=== PATIENT | male | born 1985 | race Caucasian/White ===

== ENCOUNTER 2020-02-23 01:39 | Emergency (ER) | payer MEDICAID, OTHER ==
--- NOTE | 2020-02-23 01:59 | ERPHSYRPT ---
- History of Present Illness Time Seen by Provider: 02/23/20 01:50 Source: patient, police Exam Limitations: other (suspected substance abuse) Patient Subjective Stated Complaint: Under arrest. Physician History: Brought in by police for clearance for fdc. He is suspected of substance abuse. Timing/Duration: today Severity: moderate Modifying Factors: Improves With: other Associated Symptoms: denies symptoms Allergies/Adverse Reactions: No Known Drug Allergies Allergy (Verified 02/23/20 01:56) Home Medications: No Reportable Medications [No Reported Medications] 02/23/20 [History] Hx Tetanus, Diphtheria Vaccination/Date Given: Yes Hx Influenza Vaccination/Date Given: No Hx Pneumococcal Vaccination/Date Given: No - Review of Systems Constitutional: No Symptoms Eyes: No Symptoms Ears, Nose, & Throat: No Symptoms Respiratory: No Symptoms Cardiac: No Symptoms Abdominal/Gastrointestinal: No Symptoms Genitourinary Symptoms: No Symptoms Musculoskeletal: No Symptoms Skin: No Symptoms Neurological: No Symptoms Psychological: Drug Abuse Endocrine: No Symptoms Hematologic/Lymphatic: No Symptoms Immunological/Allergic: No Symptoms All Other Systems: Reviewed and Negative - Past Medical History Pertinent Past Medical History: Yes Neurological History: No Pertinent History ENT History: No Pertinent History Cardiac History: Other (see history of present illness) Respiratory History: No Pertinent History Endocrine Medical History: No Pertinent History Musculoskeletal History: No Pertinent History GI Medical History: No Pertinent History History: No Pertinent History Psycho-Social History: Depression Male Reproductive Disorders: No Pertinent History Other Medical History: MITRAL VALVE PROLAPSE - Past Surgical History Past Surgical History: No Neuro Surgical History: No Pertinent History Cardiac: No Pertinent History Respiratory: No Pertinent History Gastrointestinal: No Pertinent History Genitourinary: No Pertinent History Musculoskeletal: Other Male Surgical History: No Pertinent History Other Surgical History: Pt fell as a child, laceration and skull repair - Social History Smoking Status: Current every day smoker How long have you smoked: 10 Exposure to second hand smoke: No Drug Use: marijuana Patient Lives Alone: No Significant Family History: heart disease (sister mitral valve dx,and family members with sudden ) - Nursing Vital Signs Nursing Vital Signs: Initial Vital Signs Temperature 97.6 F 02/23/20 01:40 Pulse Rate 65 02/23/20 01:40 Respiratory Rate 18 02/23/20 01:40 Blood Pressure 157/89 02/23/20 01:40 O2 Sat by Pulse Oximetry 100 02/23/20 01:40 Pain Scale Pain Intensity 0 - Physical Exam General Appearance: no apparent distress Eye Exam: PERRL/EOMI, eyes nml inspection Ears, Nose, Throat Exam: normal ENT inspection Neck Exam: normal inspection, non-tender Respiratory Exam: normal breath sounds Cardiovascular Exam: regular rate/rhythm, normal heart sounds Gastrointestinal/Abdomen Exam: soft, normal bowel sounds Rectal Exam: deferred Back Exam: normal inspection Extremity Exam: normal inspection Neurologic Exam: alert, cooperative, other (somewhat "twitchy" from meth, not hallucinating) Skin Exam: normal color, warm, dry SpO2 Interpretation: normal O2 Delivery: Room Air - Course Nursing assessment & vital signs reviewed: Yes Ordered Tests: Active Orders 24 hr Category Date Time Status ACETAMINOPHEN Stat Lab 02/23/20 02:05 Completed CBC Stat Lab 02/23/20 02:05 Completed CMP Stat Lab 02/23/20 02:05 Completed ETHYL ALCOHOL Stat Lab 02/23/20 02:05 Completed SALICYLATE Stat Lab 02/23/20 02:05 Completed Urine Triage Profile Stat Lab 02/23/20 02:05 Completed Positive UDS noted. Lab/Rad Data: Laboratory Result Diagrams 02/23/20 02:05 02/23/20 02:05 Laboratory Results 02/23/20 02/23/20 02/23/20 Range/Units 02:05 02:05 02:05 WBC 9.1 (4.0-10.5) K/mm3 RBC 4.58 (4.1-5.6) M/mm3 Hgb 14.0 (12.5-18.0) gm/dl Hct 41.2 L (42-50) % MCV 90.0 (78-100) fl MCH 30.6 (26-32) pg MCHC 34.0 (32-36) g/dl RDW 13.7 (11.5-14.0) % Plt Count 275 (150-450) K/mm3 MPV 10.0 (7.5-11.0) fl Sodium 136 L (137-145) mmol/L Potassium 3.9 (3.5-5.1) mmol/L Chloride 99 (98-107) mmol/L Carbon Dioxide 29 (22-30) mmol/L Anion Gap 11.7 (5-15) MEQ/L BUN 17 (9-20) mg/dL Creatinine 0.91 (0.66-1.25) mg/dL Estimated GFR > 60.0 ML/MIN Glucose 114 H (74-106) mg/dL Calcium 10.0 (8.4-10.2) mg/dL Total Bilirubin 1.00 (0.2-1.3) mg/dL AST 26 (17-59) U/L ALT 18 (0-50) U/L Alkaline Phosphatase 80 (38-126) U/L Serum Total Protein 8.5 H (6.3-8.2) g/dL Albumin 5.2 H (3.5-5.0) g/dL Salicylates < 1.0 L (2-20) mg/dL Urine Opiates Level (NEGATIVE) Ur Methadone (NEGATIVE) Acetaminophen < 10 L (10-30) ug/ml Urine Barbiturates (NEGATIVE) Ur Phencyclidine (PCP) (NEGATIVE) Urine Amphetamine (NEGATIVE) U Benzodiazepine Level (NEGATIVE) Urine Cocaine (NEGATIVE) Urine Marijuana (THC) (NEGATIVE) Ethyl Alcohol (0-10) mg/dL 02/23/20 02/23/20 Range/Units 02:05 02:05 WBC (4.0-10.5) K/mm3 RBC (4.1-5.6) M/mm3 Hgb (12.5-18.0) gm/dl Hct (42-50) % MCV (78-100) fl MCH (26-32) pg MCHC (32-36) g/dl RDW (11.5-14.0) % Plt Count (150-450) K/mm3 MPV (7.5-11.0) fl Sodium (137-145) mmol/L Potassium (3.5-5.1) mmol/L Chloride (98-107) mmol/L Carbon Dioxide (22-30) mmol/L Anion Gap (5-15) MEQ/L BUN (9-20) mg/dL Creatinine (0.66-1.25) mg/dL Estimated GFR ML/MIN Glucose (74-106) mg/dL Calcium (8.4-10.2) mg/dL Total Bilirubin (0.2-1.3) mg/dL AST (17-59) U/L ALT (0-50) U/L Alkaline Phosphatase (38-126) U/L Serum Total Protein (6.3-8.2) g/dL Albumin (3.5-5.0) g/dL Salicylates (2-20) mg/dL Urine Opiates Level NEGATIVE (NEGATIVE) Ur Methadone NEGATIVE (NEGATIVE) Acetaminophen (10-30) ug/ml Urine Barbiturates NEGATIVE (NEGATIVE) Ur Phencyclidine (PCP) NEGATIVE (NEGATIVE) Urine Amphetamine POSITIVE (NEGATIVE) U Benzodiazepine Level POSITIVE (NEGATIVE) Urine Cocaine NEGATIVE (NEGATIVE) Urine Marijuana (THC) POSITIVE (NEGATIVE) Ethyl Alcohol < 10 (0-10) mg/dL - Progress Progress: unchanged Progress Note: 02/23/20 03:25 He is showing signs of meth use. Medically cleared for incarceration. Counseled pt/family regarding: drug and/or alcohol abuse, lab results - Departure Departure Disposition: Long-Term/Senior Living Clinical Impression: Substance abuse Condition: Stable Critical Care Time: No Referrals: THAO BAEZA [Primary Care Provider] - Instructions: Polysubstance Abuse Additional Instructions: Medically cleared for incarceration.
[2020-02-23 02:25] LABS: ALBUMIN 5.2 g/dL (3.5-5.0); ALKALINE PHOSPHATASE 80 U/L (38-126); ANION GAP 11.7 MEQ/L (5-15); BLOOD UREA NITROGEN 17 mg/dL (9-20); CHLORIDE 99 mmol/L (98-107); Carbon Dioxide 29 mmol/L (22-30); Creatinine 1 0.91 mg/dL (0.66-1.25); EST GLOMERULAR FILTRATION RATE > 60.0 ML/MIN; Glucose 114 mg/dL (74-106); Potassium 3.9 mmol/L (3.5-5.1); SGOT/AST 26 U/L (17-59); SGPT/ALT 18 U/L (0-50); SODIUM 136 mmol/L (137-145); Total Protein 8.5 g/dL (6.3-8.2)
[2020-02-23 02:26] LABS: ACETAMINOPHEN < 10 ug/ml (10-30); SALICYLATE < 1.0 mg/dL (2-20)
[2020-02-23 02:30] LABS: Barbiturate,Urine NEGATIVE (NEGATIVE); Benzodiazepine,Urine POSITIVE (NEGATIVE); Cocaine,Urine NEGATIVE (NEGATIVE); Methadone,Urine NEGATIVE (NEGATIVE); Opiate,Urine NEGATIVE (NEGATIVE); PCP,Urine NEGATIVE (NEGATIVE); THC,Urine POSITIVE (NEGATIVE)
[2020-02-23 02:38] LABS: Hematocrit 41.2 % (42-50); Mean Corpuscular Hemoglobin 30.6 pg (26-32); Platelet Count 275 K/mm3 (150-450); Red Blood Count 4.58 M/mm3 (4.1-5.6); Red Cell Distribution Width 13.7 % (11.5-14.0); White Blood Count 9.1 K/mm3 (4.0-10.5)
[2020-02-23 02:56] LABS: Amphetamine,Urine POSITIVE (NEGATIVE)
[2020-02-23 03:16] VITALS: BP 162/92; PULSE 72; O2SAT 96
== END 2020-02-23 03:25 | disposition home or self-care (01) ==
LOC: ED 01:39
DX: F19.10 Other psychoactive substance abuse, uncomplicated (principal); Z02.89 Encounter for other administrative examinations
CPT/HCPCS: 36415; 80053; 80307; 85027; 99283; G0480

== ENCOUNTER 2022-10-02 03:03 | Emergency (ER) | payer MEDICAID, OTHER ==
[2022-10-02 03:28] VITALS: RESP 20
--- NOTE | 2022-10-02 03:41 | ERPHSYRPT ---
- History of Present Illness Time Seen by Provider: 10/02/22 03:35 Source: patient Exam Limitations: no limitations Patient Subjective Stated Complaint: withdrawing from suboxone. last dose approx 2 weeks ago Triage Nursing Assessment: pt to ED c/o withdraw from suboxone. started on suboxone earlier this year and missed an appt recently so has been off the medication for approx 1.5-2 weeks. pt states he has aching joints and sore body that tylenol or ibuprofen are not alleviating. rates 4/10. states he has not been able to sleep or eat for a few days and is progressively feeling worse. reports increase in emesis today. Physician History: pt went off subaxone about 1 week ago and is continuing with withdrawal symptoms No CP or SOBreath or Abd pain. slightly aggitated, but otherwise normal mental status and normal neuro exam. Has rhinorrhea and hx diarrhea N and V. characteristic of withdrawal. We are not set up yet for the suboxone Tx here yet. chest is clear, Ht is reg without M. Abd soft nontender without peritoneal signs or mass or distension. Discussed lab eval with pt including risks/benefits of CBC, CMP, Lipase, Lactate , CPK and he wishes to proceed and these are ordered and the results discussed with pt when returned. Also discussed risks/benfits of zofran and clonidine with pt and he wishes to try these for symptomatic relief as well. and wishes IVF. Timing/Duration: day(s) Severity: moderate Modifying Factors: Improves With: nothing Associated Symptoms: nausea, vomiting Allergies/Adverse Reactions: No Known Drug Allergies Allergy (Verified 10/02/22 03:14) Home Medications: No Reportable Medications [No Reported Medications] 02/23/20 [History] Hx Tetanus, Diphtheria Vaccination/Date Given: Yes Hx Influenza Vaccination/Date Given: Yes Hx Pneumococcal Vaccination/Date Given: No Immunizations Up to Date: Yes Travel Risk - International Travel Have you traveled outside of the country in past 3 weeks: No - Coronavirus Screening Are you exhibiting any of the following symptoms?: No Symptoms: Shortness of Breath - Vaccine Status Have you recieved a Covid-19 vaccination: No - Review of Systems Constitutional: No Fever, No Chills Eyes: No Symptoms Ears, Nose, & Throat: No Symptoms Respiratory: No Cough, No Dyspnea Cardiac: No Chest Pain, No Edema, No Syncope Abdominal/Gastrointestinal: Nausea, Vomiting, Diarrhea, No Abdominal Pain Genitourinary Symptoms: No Dysuria Musculoskeletal: No Back Pain, No Neck Pain Skin: No Symptoms, No Rash Neurological: No Dizziness, No Focal Weakness, No Sensory Changes Psychological: No Symptoms Endocrine: No Symptoms Hematologic/Lymphatic: No Symptoms Immunological/Allergic: No Symptoms All Other Systems: Reviewed and Negative - Past Medical History Pertinent Past Medical History: Yes Neurological History: No Pertinent History ENT History: No Pertinent History Cardiac History: Other Respiratory History: No Pertinent History Endocrine Medical History: No Pertinent History Musculoskeletal History: No Pertinent History GI Medical History: GERD History: No Pertinent History Psycho-Social History: Depression Male Reproductive Disorders: No Pertinent History Other Medical History: MITRAL VALVE PROLAPSE - Past Surgical History Past Surgical History: No Neuro Surgical History: No Pertinent History Cardiac: No Pertinent History Respiratory: No Pertinent History Gastrointestinal: No Pertinent History Genitourinary: No Pertinent History Musculoskeletal: Other Male Surgical History: No Pertinent History Other Surgical History: Pt fell as a child, laceration and skull repair - Social History Smoking Status: Current every day smoker How long have you smoked: 10 Exposure to second hand smoke: No Drug Use: marijuana Patient Lives Alone: No Significant Family History: heart disease (sister mitral valve dx,and family members with sudden ) - Nursing Vital Signs Nursing Vital Signs: Initial Vital Signs Pulse Rate 75 10/02/22 03:14 Respiratory Rate 20 10/02/22 03:14 Blood Pressure 153/99 10/02/22 03:14 O2 Sat by Pulse Oximetry 95 10/02/22 03:14 Pain Scale Pain Intensity 4 - Physical Exam General Appearance: mild distress, alert Eye Exam: PERRL/EOMI, eyes nml inspection Ears, Nose, Throat Exam: normal ENT inspection, TMs normal, pharynx normal, moist mucous membranes Neck Exam: normal inspection, non-tender, supple, full range of motion Respiratory Exam: normal breath sounds, lungs clear, No respiratory distress Cardiovascular Exam: regular rate/rhythm, normal heart sounds, normal peripheral pulses Gastrointestinal/Abdomen Exam: soft, normal bowel sounds, No tenderness, No mass Rectal Exam: deferred Back Exam: normal inspection, normal range of motion, No CVA tenderness, No vertebral tenderness Extremity Exam: normal inspection, normal range of motion, pelvis stable Neurologic Exam: alert, oriented x 3, cooperative, normal mood/affect, nml cerebellar function, nml station & gait, sensation nml, No motor deficits Skin Exam: normal color, warm, dry, No rash Lymphatic Exam: No adenopathy SpO2 Interpretation: normal SpO2: 95 O2 Delivery: Room Air - Course Nursing assessment & vital signs reviewed: Yes Ordered Tests: Active Orders 24 hr Category Date Time Status IV Insertion STAT Care 10/02/22 03:44 Active CBC W DIFF Stat Lab 10/02/22 03:56 Completed CK (IN-HOUSE) [CK-Creatinine Phosphokinase] Stat Lab 10/02/22 03:59 Completed CMP Stat Lab 10/02/22 03:56 Completed LIPASE Stat Lab 10/02/22 03:56 Completed Lactic Acid Stat Lab 10/02/22 04:00 Completed Medication Summary Discontinued Medications Generic Name Dose Route Start Last Admin Trade Name Brad PRN Reason Stop Dose Admin Clonidine 0.1 mg 10/02/22 03:45 10/02/22 04:22 Clonidine Hcl 0.1 Mg Tablet PO 10/02/22 03:46 0.1 mg STAT ONE Administration Clonidine Confirm 10/02/22 04:18 Clonidine Hcl 0.1 Mg Tablet Administered 10/02/22 04:19 Dose 0.1 mg .ROUTE .STK-MED ONE Sodium Chloride 1,000 mls @ 999 mls/hr 10/02/22 03:44 10/02/22 04:21 Sodium Chloride 0.9% 1000 Ml IV 10/02/22 04:44 999 mls/hr .Q1H1M STA Administration Sodium Chloride Confirm 10/02/22 04:19 Sodium Chloride 0.9% 1000 Ml Administered 10/02/22 04:20 Dose 1,000 mls @ ud .ROUTE .STK-MED ONE Ondansetron HCl 4 mg 10/02/22 03:45 10/02/22 04:22 Ondansetron Hcl 4 Mg/2 Ml Vial IV 10/02/22 03:46 4 mg STAT ONE Administration Ondansetron HCl Confirm 10/02/22 04:18 Ondansetron Hcl 4 Mg/2 Ml Vial Administered 10/02/22 04:19 Dose 4 mg .ROUTE .STK-MED ONE Lab/Rad Data: Laboratory Result Diagrams 10/02/22 03:56 10/02/22 03:56 Laboratory Results 10/02/22 10/02/22 10/02/22 Range/Units 04:00 03:59 03:56 WBC (4.0-10.5) x10^3/uL RBC (4.1-5.6) x10^6/uL Hgb (12.5-18.0) g/dL Hct (42-50) % MCV (78-100) fL MCH (26-32) pg MCHC (32-36) g/dL RDW (11.5-14.0) % Plt Count (150-450) x10^3/uL MPV (7.5-11.0) fL Gran % (36.0-66.0) % Immature Gran % (Auto) (0.00-0.4) % Nucleat RBC Rel Count (0.00-0.1) % Eos # (Auto) (0-0.5) x10^3/uL Immature Gran # (Auto) (0.00-0.03) x10^3u/L Absolute Lymphs (auto) (1.0-4.6) x10^3/uL Absolute Monos (auto) (0.0-1.3) x10^3/uL Absolute Nucleated RBC (0.00-0.01) x10^3u/L Lymphocytes % (24.0-44.0) % Monocytes % (0.0-12.0) % Eosinophils % (0.00-5.0) % Basophils % (0.0-0.4) % Absolute Granulocytes (1.4-6.9) x10^3/uL Basophils # (0-0.4) x10^3/uL Sodium 140 (137-145) mmol/L Potassium 3.7 (3.5-5.1) mmol/L Chloride 105 (98-107) mmol/L Carbon Dioxide 26 (22-30) mmol/L Anion Gap 13.4 (5-15) MEQ/L BUN 9 (9-20) mg/dL Creatinine 0.69 (0.66-1.25) mg/dL Estimated GFR > 60.0 ML/MIN Glucose 101 (74-106) mg/dL Lactic Acid 1.0 (0.4-2.0) Calcium 9.6 (8.4-10.2) mg/dL Total Bilirubin 0.80 (0.2-1.3) mg/dL AST 20 (17-59) U/L ALT 14 (0-50) U/L Alkaline Phosphatase 61 (38-126) U/L Creatine Kinase 88 (55-170) U/L Serum Total Protein 7.7 (6.3-8.2) g/dL Albumin 4.8 (3.5-5.0) g/dL Lipase 151 (23-300) U/L 10/02/22 Range/Units 03:56 WBC 10.3 (4.0-10.5) x10^3/uL RBC 4.46 (4.1-5.6) x10^6/uL Hgb 13.5 (12.5-18.0) g/dL Hct 38.8 L (42-50) % MCV 87.0 (78-100) fL MCH 30.3 (26-32) pg MCHC 34.8 (32-36) g/dL RDW 13.5 (11.5-14.0) % Plt Count 234 (150-450) x10^3/uL MPV 9.9 (7.5-11.0) fL Gran % 64.7 (36.0-66.0) % Immature Gran % (Auto) 0.6 H (0.00-0.4) % Nucleat RBC Rel Count 0.0 (0.00-0.1) % Eos # (Auto) 0.18 (0-0.5) x10^3/uL Immature Gran # (Auto) 0.06 H (0.00-0.03) x10^3u/L Absolute Lymphs (auto) 2.71 (1.0-4.6) x10^3/uL Absolute Monos (auto) 0.61 (0.0-1.3) x10^3/uL Absolute Nucleated RBC 0.00 (0.00-0.01) x10^3u/L Lymphocytes % 26.4 (24.0-44.0) % Monocytes % 6.0 (0.0-12.0) % Eosinophils % 1.8 (0.00-5.0) % Basophils % 0.5 (0.0-0.4) % Absolute Granulocytes 6.64 (1.4-6.9) x10^3/uL Basophils # 0.05 (0-0.4) x10^3/uL Sodium (137-145) mmol/L Potassium (3.5-5.1) mmol/L Chloride (98-107) mmol/L Carbon Dioxide (22-30) mmol/L Anion Gap (5-15) MEQ/L BUN (9-20) mg/dL Creatinine (0.66-1.25) mg/dL Estimated GFR ML/MIN Glucose (74-106) mg/dL Lactic Acid (0.4-2.0) Calcium (8.4-10.2) mg/dL Total Bilirubin (0.2-1.3) mg/dL AST (17-59) U/L ALT (0-50) U/L Alkaline Phosphatase (38-126) U/L Creatine Kinase (55-170) U/L Serum Total Protein (6.3-8.2) g/dL Albumin (3.5-5.0) g/dL Lipase (23-300) U/L - Progress Progress: improved, re-examined Progress Note: 10/02/22 05:04 pt has been in contact with his addiction center and plans follow-up today. He has clonidine at home which he can take for symptoms meantime. He is feeling better after the IVF and symptomatic treatment here. Repeat exam does not indicate any other etiologies or concerns at this time - pt advised that additional pathology could exist not yet detected and he is comfortable to have his outpt f/u and tx rather than further eval in ER or hospital at this time and has the capacity to make this choice. Counseled pt/family regarding: lab results, diagnosis, need for follow-up Medical Desision Making - Diagnostic Testing Diagnostic test were ordered, analyzed, and reviewed by me: Yes - Risk of complications The pt has a mod risk of morbidity or mortality based on: Need for prescription drug management - Departure Departure Disposition: Home Clinical Impression: narcotic/suboxone withdrawal Condition: Good Critical Care Time: No Referrals: DOCTOR,NO FAMILY [Primary Care Provider] - Follow up/PCP as directed Instructions: Drug Withdrawal (DC), Clonidine, Substance Misuse Treatment Additional Instructions: Folllow-up as planned today for further treatment of your condition. It is also important to follow-up with your DrXimena since other conditions might also cause your symptoms and additional workup may be needed as determined by your Dr. and followup your blood pressure as well. Meantime, You may take the clonidine 0.1 mg that you have up to every 6 hours as needed for the withdrawal symptoms. return meantime if any additional symptoms of concern such as fever, vomiting, abdominal pain , dizziness or other concerns.
[2022-10-02] MEDS ORDERED: Sodium Chloride 0.9% 1000 ML 1,000 ML IV STA (03:44)
[2022-10-02] MEDS ORDERED: Zofran 4 MG/2 ML VIAL IV ONE (03:45)
[2022-10-02] MEDS ORDERED: CLONIDINE 0.1 MG TABLET PO ONE (03:45)
[2022-10-02 04:13] LABS: ALBUMIN 4.8 g/dL (3.5-5.0); ALKALINE PHOSPHATASE 61 U/L (38-126); ANION GAP 13.4 MEQ/L (5-15); BLOOD UREA NITROGEN 9 mg/dL (9-20); CHLORIDE 105 mmol/L (98-107); Calcium 9.6 mg/dL (8.4-10.2); Carbon Dioxide 26 mmol/L (22-30); Creatinine 1 0.69 mg/dL (0.66-1.25); EST GLOMERULAR FILTRATION RATE > 60.0 ML/MIN; Glucose 101 mg/dL (74-106); LIPASE 151 U/L (23-300); Potassium 3.7 mmol/L (3.5-5.1); SGOT/AST 20 U/L (17-59); SGPT/ALT 14 U/L (0-50); SODIUM 140 mmol/L (137-145); Total Protein 7.7 g/dL (6.3-8.2)
[2022-10-02] MEDS ORDERED: Zofran 4 MG/2 ML VIAL ONE (04:18)
[2022-10-02] MEDS ORDERED: CLONIDINE 0.1 MG TABLET ONE (04:18)
[2022-10-02] MEDS ORDERED: Sodium Chloride 0.9% 1000 ML 1,000 ML ONE (04:19)
[2022-10-02 04:20] LABS: Absolute Neutrophil Ct (ANC) 6.64 x10^3/uL (1.4-6.9); BASOPHIL % 0.5 % (0.0-0.4); Basophil (Absolute #) 0.05 x10^3/uL (0-0.4); Eosinophil % 1.8 % (0.00-5.0); Eosinophil (Absolute #) 0.18 x10^3/uL (0-0.5); Hematocrit 38.8 % (42-50); Hemoglobin 13.5 g/dL (12.5-18.0); IMMATURE GRAN # 0.06 x10^3u/L (0.00-0.03); IMMATURE GRAN % 0.6 % (0.00-0.4); Lymphocyte (Absolute #) 2.71 x10^3/uL (1.0-4.6); Lymphocytes % 26.4 % (24.0-44.0); Mean Corpuscular Hemoglobin 30.3 pg (26-32); Mean Corpuscular Hgb Concent. 34.8 g/dL (32-36); Mean Platelet Volume 9.9 fL (7.5-11.0); Monocyte (Absolute #) 0.61 x10^3/uL (0.0-1.3); Neutrophil % 64.7 % (36.0-66.0); Platelet Count 234 x10^3/uL (150-450); Red Blood Count 4.46 x10^6/uL (4.1-5.6); Red Cell Distribution Width 13.5 % (11.5-14.0); White Blood Count 10.3 x10^3/uL (4.0-10.5)
[2022-10-02 05:01] VITALS: BP 126/79; PULSE 47
[2022-10-02 05:13] VITALS: O2SAT 95
== END 2022-10-02 06:16 | disposition home or self-care (01) ==
LOC: ED 03:03
DX: F11.23 Opioid dependence with withdrawal (principal); Z28.310 Unvaccinated for COVID-19; Z72.0 Tobacco use
CPT/HCPCS: 36000; 36415; 80053; 82550; 83605; 83690; 85025; 96374; 99284; J2405; A9270-GY